=== PATIENT | female | born 1960 | race Asian ===

== ENCOUNTER → 2017-08-27 | Outpatient (CLI) | payer BC | END | disposition home or self-care (01) | LOC: CFH 13:28 | PROVIDERS: ATTEND Family Medicine | DX: Z12.31 Encounter for screening mammogram for malignant neoplasm of breast (principal) | CPT/HCPCS: G0202 ==

== ENCOUNTER → 2019-01-28 | Outpatient (CLI) | payer OTHER | END | disposition home or self-care (01) | LOC: CFH 14:30 | PROVIDERS: ATTEND Family Medicine | DX: Z12.31 Encounter for screening mammogram for malignant neoplasm of breast (principal) | CPT/HCPCS: 77063; 77067 ==

== ENCOUNTER → 2020-05-19 | Outpatient (CLI) | payer OTHER | END | disposition home or self-care (01) | LOC: CFH 13:57 | PROVIDERS: ATTEND Family Medicine | DX: Z12.31 Encounter for screening mammogram for malignant neoplasm of breast (principal) | CPT/HCPCS: 77063; 77067 ==